=== PATIENT | female | born 1965 | race Caucasian/White ===

== ENCOUNTER → 2016-11-21 | Outpatient (CLI) | payer BC ==
[~2016-11-21] MED LIST: AMOXICILLIN 8751 TAB PO; CETIRIZINE; CLONAZEPAM PO; ESKALITH; FLUOXETINE; HYZAAR; LEVOTHYROXINE PO; MVI; NORCO 325 MG-51 TAB PO; ROPINAROLE; SANCTURA; SINGULAIR; WELLBUTRIN XL300 MG PO
== END ==
LOC: MC.RAD 16:13
DX: Z12.31 Encounter for screening mammogram for malignant neoplasm of breast (principal)

== ENCOUNTER → 2017-05-02 | Outpatient (CLI) | payer BC | LOC: BHSO 10:32 | DX: F31.73 Bipolar disorder, in partial remission, most recent episode manic (principal) ==

== ENCOUNTER → 2017-10-30 | Outpatient (CLI) | payer BC | LOC: BHSO 09:15 | DX: F33.1 Major depressive disorder, recurrent, moderate (principal) | CPT/HCPCS: G0463 ==

== ENCOUNTER → 2017-12-02 | Outpatient (CLI) | payer BC | LOC: BHSO 15:55 | DX: F31.31 Bipolar disorder, current episode depressed, mild (principal) ==

== ENCOUNTER → 2018-01-19 | Outpatient (CLI) | payer BC | LOC: BHSO 15:55 | DX: F32.1 Major depressive disorder, single episode, moderate (principal) ==

== ENCOUNTER → 2018-02-02 | Outpatient (CLI) | payer BC | LOC: BHSO 15:51 | DX: F33.1 Major depressive disorder, recurrent, moderate (principal) ==

== ENCOUNTER → 2018-05-11 | Outpatient (CLI) | payer BC | LOC: BHSO 09:43 | DX: F31.81 Bipolar II disorder (principal) | CPT/HCPCS: G0463 ==

== ENCOUNTER → 2018-06-19 | Outpatient (CLI) | payer BC | LOC: MC.RAD 06-16 15:00 | DX: Z12.31 Encounter for screening mammogram for malignant neoplasm of breast (principal) ==

== ENCOUNTER → 2018-10-30 | Outpatient (CLI) | payer BC | LOC: BHSO 09:39 | DX: F31.81 Bipolar II disorder (principal) | CPT/HCPCS: G0463 ==

== ENCOUNTER → 2019-04-20 | Outpatient (CLI) | payer BC | LOC: BHSO 11:17 | DX: F31.81 Bipolar II disorder (principal) | CPT/HCPCS: G0463 ==

== ENCOUNTER → 2021-05-22 | Outpatient (CLI) | payer BC | LOC: COL.PUL 10:44 | DX: R06.02 Shortness of breath (principal) ==

== ENCOUNTER → 2021-09-18 | Outpatient (CLI) | payer BC | LOC: COL.PUL 08-30 13:00 | DX: R06.02 Shortness of breath (principal) | CPT/HCPCS: J7674 ==

== ENCOUNTER → 2022-02-21 | Outpatient (CLI) | payer BC | LOC: COL.RAD 08:00 | DX: K59.04 Chronic idiopathic constipation (principal) ==

== ENCOUNTER → 2022-02-26 | Outpatient (CLI) | payer BC | LOC: COL.RAD 08:00 | DX: K59.04 Chronic idiopathic constipation (principal) ==